=== PATIENT | male | born 1995 | race Caucasian/White ===

== ENCOUNTER 2018-04-22 12:53 | Emergency (ER) | payer OTHER ==
[~2018-04-22] VITALS: Ht 177.8 cm; Wt 65.8 kg
[2018-04-22 13:00] VITALS: BP 150/80
--- NOTE | 2018-04-22 13:31 | PHYS DOC ---
Past Medical History Past Medical History: Other Additional Past Medical Histor: ADHD, SCHIZOAFFECTIVE D/O (EMMANUEL CARBAJAL BOX OFFICE AGENT) Past Surgical History: No Surgical History (EMMANUEL CARBAJAL BOX OFFICE AGENT) Alcohol Use: Occasionally Drug Use: Marijuana (EMMANUEL CARBAJAL APRN) Adult General Chief Complaint Chief Complaint: TOE PROBLEM HPI HPI Patient is a 22 year old male who presents with syncopal and syncopal Friday which was April 12, 2018 out of the backyard only wearing socks. Patient states her to me Jamie could feel his toes Maurice under and then his right great toe became very painful. Patient states the pain is 8 out of 10 and is throbbing. Patient states it was bruised but is no longer. Patient can walk with a steady gait but is very painful. (EMMANUEL CARBAJAL B[employer] OFFICE AGENT) Review of Systems Review of Systems Constitutional: Denies fever or chills [] Eyes: Denies change in visual acuity, redness, or eye pain [] HENT: Denies nasal congestion or sore throat [] Respiratory: Denies cough or shortness of breath [] Cardiovascular: No additional information not addressed in HPI [] GI: Denies abdominal pain, nausea, vomiting, bloody stools or diarrhea [] : Denies dysuria or hematuria [] Musculoskeletal: Denies back pain. Right great toe joint pain [] Integument: Denies rash or skin lesions [] Neurologic: Denies headache, focal weakness or sensory changes [] Endocrine: Denies polyuria or polydipsia [] All other systems were reviewed and found to be within normal limits, except as documented in this note. (EMMANUEL CARBAJAL B[employer] OFFICE AGENT) Allergies Allergies Allergies Coded Allergies Type Severity Reaction Last Updated Verified No Known Drug Allergies 04/22/18 No (NEVILLE CALLEJAS MD) Physical Exam Physical Exam Constitutional: Well developed, well nourished, no acute distress, non-toxic appearance. [] HENT: Normocephalic, atraumatic, bilateral external ears normal, oropharynx moist, no oral exudates, nose normal. [] Eyes: PERRLA, EOMI, conjunctiva normal, no discharge. [] Neck: Normal range of motion, no tenderness, supple, no stridor. [] Cardiovascular:Heart rate regular rhythm, no murmur [] Lungs & Thorax: Bilateral breath sounds clear to auscultation [] Abdomen: Bowel sounds normal, soft, no tenderness, no masses, no pulsatile masses. [] Skin: Warm, dry, no erythema, no rash. [] Back: No tenderness, no CVA tenderness. [] Extremities: Right great toe tenderness, no cyanosis, no clubbing, ROM intact, no edema. [] Neurologic: Alert and oriented X 3, normal motor function, normal sensory function, no focal deficits noted. [] Psychologic: Affect normal, judgement normal, mood normal. [] (EMMANUEL CARBAJAL APRN) Current Patient Data Vital Signs Vital Signs Date Time Temp Pulse Resp B/P (MAP) Pulse Ox O2 Delivery O2 Flow Rate FiO2 04/22/18 13:00 98.1 80 18 150/80 (103) 99 Room Air 98.1 (NEVILLE CALLEJAS MD) EKG EKG [] (EMMANUEL CARBAJAL APRN) Radiology/Procedures Radiology/Procedures Right foot (EMMANUEL CARBAJAL APRN) Impressions: [facility] [address] [place] [address] IMAGING REPORT Signed PATIENT: CARLEE MÁRQUEZ ACCOUNT: [id number] : 1995 LOCATION: ER AGE: 22 SEX: M EXAM STATUS: REG ER ORD. PHYSICIAN: EMMANUEL CARBAJAL APRN REASON: right great toe injury PROCEDURE: FOOT RIGHT 3V EXAM: Right foot, 3 views. HISTORY: Swelling. COMPARISON: None. FINDINGS: 3 views of the right foot are obtained. There is no fracture, dislocation or subluxation. There is a tiny subchondral lucency within the medial distal first proximal phalanx, likely developmental. There is no convincing osseous erosion. IMPRESSION: No acute osseous finding. Electronically signed by: Shanika Barrientos MD (04/22/2018 2:10 PM) [id number] DICTATED and SIGNED BY: SHANIKA BARRIENTOS MD DATE: 04/22/18 [id number] (EMMANUEL CARBAJAL APRN) Course & Med Decision Making Course & Med Decision Making Patient is a 22 year old male who presents with syncopal and syncopal Friday which was April 12, 2018 out of the backyard only wearing socks. Patient states her to me Jamie could feel his toes Riley under and then his right great toe became very painful. Patient states the pain is 8 out of 10 and is throbbing. Patient states it was bruised but is no longer. Patient can walk with a steady gait but is very painful. Cap refill less than 3 seconds. Pedal pulses strong and present. Toe was not swollen or bruised. There is no injury or deformity or injury to the nailbed. Rest the foot is not tender. It is tender when palpating the toe the patient can move at the joints but there is pain. Xray shows no acute findings. (EMMANUEL CARBAJAL APRN) Course & Med Decision Making Staff Physician Addendum: I was working in the ER during the course of this patient's visit. I was available for consultation as needed, but I was not directly involved in the care of this patient. (NEVILLE CALLEJAS MD) Dragon Disclaimer Dragon Disclaimer This electronic medical record was generated, in whole or in part, using a voice recognition dictation system. (EMMANUEL CARBAJAL APRN) Departure Departure Impression: Primary Impression: Contusion of foot including toes Disposition: 01 HOME, SELF-CARE Condition: STABLE Referrals: UNKNOWN PCP NAME (PCP) Patient Instructions: Foot Contusion Additional Instructions: Use Brian bandage to help with any kind of pain. Take ibuprofen help with pain. Follow primary care if not getting any better. Scripts Ibuprofen (IBUPROFEN) 600 Mg Tablet 600 MG PO PRN Q6HRS PRN for INFLAMMATION, #15 TAB Prov: EMMANUEL CARBAJAL APRN 04/22/18 Problem Qualifiers Primary Impression: Contusion of foot including toes Encounter type: initial encounter Laterality: right Qualified Codes: S90.31XA - Contusion of right foot, initial encounter; S90.121A - Contusion of right lesser toe(s) without damage to nail, initial encounter EMMANUEL CARBAJAL APRN Apr 22, 2018 13:31 NEVILLE CALLEJAS MD Apr 23, 2018 09:18
--- NOTE | 2018-04-22 14:14 | RAD ---
EXAM: Right foot, 3 views. HISTORY: Swelling. COMPARISON: None. FINDINGS: 3 views of the right foot are obtained. There is no fracture, dislocation or subluxation. There is a tiny subchondral lucency within the medial distal first proximal phalanx, likely developmental. There is no convincing osseous erosion. IMPRESSION: No acute osseous finding. Electronically signed by: Shanika Abad MD (04/22/2018 2:10 PM) [id number]
[2018-04-22] MEDS ORDERED: IBUP-1007 PO (14:20)
== END 2018-04-22 14:25 | disposition home or self-care (01) ==
LOC: ER 12:53
DX: S90.121A Contusion of right lesser toe(s) without damage to nail, initial encounter (principal); R55 Syncope and collapse; F25.9 Schizoaffective disorder, unspecified; X58.XXXA Exposure to other specified factors, initial encounter; Y93.89 Activity, other specified; Y92.89 Other specified places as the place of occurrence of the external cause; Y99.8 Other external cause status
CPT/HCPCS: 73630; 99283; 99284